=== PATIENT | male | born 1980 | race Caucasian/White ===

== ENCOUNTER → 2017-11-29 09:11 | Outpatient (CLI) | payer OTHER, SELFPAY ==
--- NOTE | 2017-11-29 08:00 | HOLTER_ITS ---
DATE OF STUDY: NOVEMBER 29, 2017 DATE OF ANALYSIS: NOVEMBER 30, 2017 DATE OF DICTATION: DECEMBER 03, 2017 HOLTER MONITOR INDICATIONS: Palpitations Monitoring period 24 hours. Baseline sinus rhythm. Average heart rate 77 beats per minute. Maximum heart rate 155 beats per minute. Rare isolated ventricular ectopy. No nonsustained ventricular tachycardia. No atrial fibrillation. No premature atrial contractions. No significant pauses or bradyarrhythmias. No diary entries or patient triggers. Overall sinus rhythm with rare ectopy.
== END ==
PROVIDERS: PCP Nurse Practitioner Adult Health; Visit Provider Nurse Practitioner Adult Health
DX: R00.2 Palpitations (principal); I49.3 Ventricular premature depolarization
CPT/HCPCS: 93225

== ENCOUNTER → 2017-11-30 14:25 | Outpatient (CLI) | payer OTHER, SELFPAY | PROVIDERS: PCP Nurse Practitioner Adult Health; Visit Provider Nurse Practitioner Adult Health | DX: R00.2 Palpitations (principal); I49.3 Ventricular premature depolarization | CPT/HCPCS: 93226 ==

== ENCOUNTER 2018-12-01 14:53 | Outpatient (CLI) | payer OTHER, SELFPAY ==
--- NOTE | 2018-12-01 11:45 | DI.RAD_ITS ---
SYMPTOMS/DIAGNOSIS: ANKLE SPRAIN 2 WEEKS AGO, ? HAIRLINE FX, T80.177V RIGHT ANKLE: Three views. No acute or healing fracture or dislocation is identified. There are no radiopaque foreign bodies seen in the soft tissues. IMPRESSION: No evidence of acute or healing fracture or dislocation.
== END 2018-12-01 15:13 ==
PROVIDERS: PCP Nurse Practitioner Adult Health; Visit Provider Family Medicine
DX: S93.401A Sprain of unspecified ligament of right ankle, initial encounter (principal)
CPT/HCPCS: 73610

== ENCOUNTER 2023-12-22 03:31 | Outpatient (CLI) | payer OTHER, SELFPAY ==
[2023-12-22 10:29] LABS: Anion Gap 5.2 mmol/L (3-11); BUN 15 mg/dL (7-18); CO2 29.8 mmol/L (21.0-32.0); CREATININE 0.8 mg/dL (0.70-1.30); Calcium 8.8 mg/dL (8.5-10.1); Calculated LDL 104 mg/dL (<100); Chloride 103 mmol/L (98-107); Cholesterol 194 mg/dL (<200); Estimated GFR 114.02 (mL/min/1.73m2); Glucose 107 mg/dL (74-106); HDL Cholesterol 80 mg/dL (40-60); Potassium 3.8 mmol/L (3.5-5.1); Sodium 138 mmol/L (136-145); Triglyceride 50 mg/dL (<150)
[2023-12-22 19:17] LABS: HIV-1/2 Ag & Ab Screen Negative (Negative)
[2023-12-22 19:30] LABS: Hepatitis C Ab w Rflx HCV PCR Negative (Negative)
== END 2023-12-22 03:32 | disposition home or self-care (01) ==
LOC: LBO 03:32
PROVIDERS: PCP Nurse Practitioner Adult Health; Referring Provider Nurse Practitioner Adult Health; Visit Provider Nurse Practitioner Adult Health
DX: Z11.4 Encounter for screening for human immunodeficiency virus [HIV] (principal); Z11.59 Encounter for screening for other viral diseases; Z13.1 Encounter for screening for diabetes mellitus; Z13.220 Encounter for screening for lipoid disorders
CPT/HCPCS: 36415; 80048; 80061; 86803; 87389

== ENCOUNTER 2024-02-03 03:29 | Outpatient (CLI) | payer OTHER, SELFPAY ==
[2024-02-03 09:44] LABS: Hemoglobin A1C 5.3 % (<5.7)
[2024-02-03 10:07] LABS: Glucose 94 mg/dL (74-106)
== END 2024-02-03 03:30 | disposition home or self-care (01) ==
PROVIDERS: PCP Nurse Practitioner Adult Health; Visit Provider Nurse Practitioner Adult Health
DX: R73.01 Impaired fasting glucose (principal)
CPT/HCPCS: 36415; 82947; 83036

== ENCOUNTER 2025-01-05 03:59 | Outpatient (CLI) | payer OTHER, SELFPAY ==
[2025-01-05 09:32] LABS: Hemoglobin A1C 5.2 % (<5.7)
[2025-01-05 10:01] LABS: Anion Gap 6.9 mmol/L (3-11); BUN 14 mg/dL (7-18); CO2 30.1 mmol/L (21.0-32.0); Calcium 8.8 mg/dL (8.5-10.1); Calculated LDL 114 mg/dL (<100); Chloride 103 mmol/L (98-107); Cholesterol 194 mg/dL (<200); Estimated GFR 113.32 (mL/min/1.73m2); Glucose 104 mg/dL (74-106); HDL Cholesterol 70 mg/dL (>or=40); Potassium 4.5 mmol/L (3.5-5.1); Sodium 140 mmol/L (136-145); Triglyceride 51 mg/dL (<150)
== END 2025-01-05 04:00 | disposition home or self-care (01) ==
LOC: LBO 03:59
PROVIDERS: PCP Nurse Practitioner Adult Health; Referring Provider Nurse Practitioner Adult Health; Visit Provider Nurse Practitioner Adult Health
DX: R73.01 Impaired fasting glucose (principal); J45.20 Mild intermittent asthma, uncomplicated; J30.89 Other allergic rhinitis; Z13.220 Encounter for screening for lipoid disorders
CPT/HCPCS: 36415; 80048; 80061; 83036